=== PATIENT | male | born 1960 | race Caucasian/White ===

== ENCOUNTER 2019-04-26 11:01 | Emergency (ER) | payer BC ==
[2019-04-26] MEDS ORDERED: Lidocaine/EPINEPHrine/Tetracaine Soln 1 ML TOP ONE (11:17)
--- NOTE | 2019-04-26 11:31 | EDM.PDOC ---
ED HPI GENERAL MEDICAL PROBLEM - General Chief Complaint: Upper Extremity Injury/Pain Stated Complaint: R ELBOW PAIN Time Seen by Provider: 04/26/19 11:09 Source of Information: Reports: Patient History Limitations: Reports: No Limitations - History of Present Illness INITIAL COMMENTS - FREE TEXT/NARRATIVE: The patient presents with right elbow swelling and pain. This started about giving. He was playing with his grand daughters and noticed some pain in his right elbow. He has swelling to the olecranon process and now he has some erythema and warmth. He denies any fever or chills. Onset: Gradual Duration: Week(s): Location: Reports: Upper Extremity, Right (elbow) Quality: Reports: Sharp Severity: Mild Improves with: Reports: None Worsens with: Reports: None Associated Symptoms: Reports: No Other Symptoms Right Elbow Pain Score (Numeric/FACES): 9 - Related Data Allergies Allergy/AdvReac Type Severity Reaction Status Date / Time No Known Allergies Allergy Verified 04/26/19 11:12 Home Meds: Home Meds Cephalexin [Keflex] 500 mg PO QID #40 capsule 04/26/19 [Rx] Hydrocodone/Acetaminophen [Hydrocodon-Acetaminophen 5-325] 1 - 2 each PO Q6HR PRN #20 tablet 04/26/19 [Rx] Naproxen [Naprosyn] 500 mg PO Q12HR PRN #20 tab 04/26/19 [Rx] Social & Family History - Tobacco Use Smoking Status *Q: Never Smoker Second Hand Smoke Exposure: No - Caffeine Use Caffeine Use: Reports: Coffee Review of Systems - Review of Systems Review Of Systems: See Below Constitutional: Reports: No Symptoms Eyes: Reports: No Symptoms Ears: Reports: No Symptoms Nose: Reports: No Symptoms Respiratory: Reports: No Symptoms Cardiovascular: Reports: No Symptoms GI/Abdominal: Reports: No Symptoms Genitourinary: Reports: No Symptoms Musculoskeletal: Reports: Other (Right elbow pain and swelling with erythema) ED EXAM, GENERAL - Physical Exam Exam: See Below Exam Limited By: No Limitations General Appearance: Alert, No Apparent Distress Ears: Normal External Exam Nose: Normal Inspection Head: Atraumatic, Normocephalic Neck: Normal Inspection Respiratory/Chest: No Respiratory Distress Extremities: Other (Right elbow swelling and pain with some erythema over the olecranon process) Course - Vital Signs Last Recorded V/S: Last Vital Signs Temp 98.2 F 04/26/19 11:08 Pulse 64 04/26/19 11:08 Resp 20 04/26/19 11:08 BP 184/114 H 04/26/19 11:08 Pulse Ox 98 04/26/19 11:08 - Orders/Labs/Meds Orders: Active Orders 24 hr Category Date Time Status CULTURE ANAEROBIC + SMEAR [RM] Stat Lab 04/26/19 12:17 Ordered Meds: Medications Discontinued Medications Generic Name Dose Route Start Last Admin Trade Name Nisreen PRN Reason Stop Dose Admin Lidocaine HCl 10 ml 04/26/19 11:34 04/26/19 11:58 Xylocaine 1% INJECT 04/26/19 11:35 10 ml ONETIME ONE Administration Lidocaine/Tetracaine 1 ml 04/26/19 11:17 04/26/19 11:30 Let Soln TOP 04/26/19 11:18 1 ml ONETIME ONE Administration - Re-Assessments/Exams Free Text/Narrative Re-Assessment/Exam: 04/26/19 12:22 I aspirated the right olecranon bursa and I got about 4mls of serous/bloody fluid. I am concerned about an infection because he has some redness. I will get him on keflex and something for pain. Departure - Departure Time of Disposition: 12:25 Disposition: Home, Self-Care 01 Condition: Good Clinical Impression: Olecranon bursitis of right elbow - Discharge Information *PRESCRIPTION DRUG MONITORING PROGRAM REVIEWED*: No *COPY OF PRESCRIPTION DRUG MONITORING REPORT IN PATIENT JIMI: No Prescriptions: Hydrocodone/Acetaminophen [Hydrocodon-Acetaminophen 5-325] 1 - 2 each PO Q6HR PRN #20 tablet PRN Reason: Pain Naproxen [Naprosyn] 500 mg PO Q12HR PRN #20 tab PRN Reason: Pain Cephalexin [Keflex] 500 mg PO QID #40 capsule Referrals: PCP,None [Primary Care Provider] - Sebastian Perez PA-C [[employer]] - 1 Week Forms: ED Department Discharge Additional Instructions: Take the keflex 4 times per day. Take the naprosyn every 12 hours as needed for pain. If that does not help try the hydrocodone. Put warm compress on your elbow 3 times per day for 3 to 5 days. Please return if you are worse. ED JOINT ASPIRATION PROCEDURE - Joint Apsiration/Arthrocentesis Site: Right elbow Skin prep: Chlorhexidine (Hibiciens) Local anesthesia: Lidocaine: 1% Plain Local Anesthetic Volume: 1cc Aspiration needle size: other (21) Aspirate appearance: serous, bloody Aspirate amount in cc's: 4 Dressing: adhesive dressing Complications: No
[2019-04-26] MEDS ORDERED: Lidocaine 1% 10 ML MDV INJECT ONE (11:34)
== END 2019-04-26 12:35 | disposition home or self-care (01) ==
LOC: JD.ED 11:01
DX: M70.21 Olecranon bursitis, right elbow (principal); Y93.89 Activity, other specified
CPT/HCPCS: 20605; 87075; 87205; 89050; 89060; 99283; J2001